=== PATIENT | female | born 1945 | race Caucasian/White ===

== ENCOUNTER 2017-08-15 11:23 | Inpatient (IN) | payer MEDICARE, OTHER ==
[2017-08-15] MEDS ORDERED: ACETAMINOPHEN 1000 MG/100 ML VIAL (NON FORMULARY) IVPB ONE (12:37)
[2017-08-15] MEDS ORDERED: SODIUM CHLORIDE 1,000 ML IV STA (12:37)
[2017-08-15] MEDS ORDERED: ACETAMINOPHEN INJECTION 100 ML IVPB ONE (12:41)
[2017-08-15 12:46] LABS: BASO % 0.4 % (0-2.0); EOS % 0.6 % (0-4.5); HEMATOCRIT 39.4 % (32.4-45.2); HEMOGLOBIN 13.1 GM/dL (10.7-15.3); MCH 26.5 pg (25.7-33.7); MCHC 33.2 g/dl (32.0-36.0); MEAN CELL VOLUME 80.1 fl (80-96); MEAN PLT VOLUME 9.5 fl (7.5-11.1); MONO % 7.3 % (3.8-10.2); NEUT % 65.7 % (42.8-82.8); PLATELET COUNT 324 K/MM3 (134-434); RBC 4.93 M/mm3 (3.60-5.2); RDW 13.2 % (11.6-15.6); WHITE BLOOD COUNT 13.6 K/mm3 (4.0-10.0)
[2017-08-15 12:47] LABS: URINE APPEARANCE CLEAR; URINE BILIRUBIN NEGATIVE (<2.0 mg/dL); URINE COLOR LTYELLOW; URINE GLUCOSE (UA) NEGATIVE (NEGATIVE); URINE KETONE NEGATIVE (NEGATIVE); URINE LEUK ESTERASE NEGATIVE (NEGATIVE); URINE NITRITE NEGATIVE (NEGATIVE); URINE PROTEIN NEGATIVE (NEGATIVE); URINE UROBILINOGEN NEGATIVE mg/dL (0.2-1.0)
[2017-08-15 13:04] LABS: ALBUMIN 3.8 g/dl (3.4-5.0); ALK PHOS 91 U/L (45-117); ANION GAP 7 (8-16); BILIRUBIN,TOTAL 0.6 mg/dL (0.2-1.0); BLOOD UREA NITROGEN 16 mg/dL (7-18); CALCIUM 9.6 mg/dL (8.5-10.1); CHLORIDE 100 mmol/L (98-107); CO2 32 mmol/L (21-32); GLUCOSE,RANDOM 97 mg/dL (74-106); LIPASE 114 U/L (73-393); SGOT/AST 20 U/L (15-37); SGPT/ALT 21 U/L (12-78); SODIUM 139 mmol/L (136-145); TOT PROT 8.1 g/dl (6.4-8.2)
--- NOTE | 2017-08-15 13:32 | PDOC ---
History of Present Illness <Radha Bautista - Last Filed: 08/15/17 16:27> - History of Present Illness Initial Comments: 08/15/17 13:28 "The patient is a 72 year old female with a significant past medical history of HTN, GERD, and HLD who presents to the emergency department for evaluation of right sided abdominal pain. The patient reports moderate right sided abdominal pain since yesterday. She describes the pain as sharp, slightly radiating towards the left. Pain is constant, not exacerbated by eating. Pt denies cp, sob , headache, dizziness, F/C, nausea, vomiting, diarrhea. No prior surgical history. Denies abdominal distention. Allergies: Aspirin Past surgical history: none Social history: Former smoker 10 years ago. No reported alcohol or drug use. PCP: Dr. 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) CVA: No COPD: No CHF: No Dementia: No Diabetes: No GI Disorders: Yes (GERD) Disorders: No HTN: Yes Hypercholesterolemia: Yes Liver Disease: No Seizures: No Thyroid Disease: No - Surgical History Abdominal Surgery: No Appendectomy: No Cardiac Surgery: Yes (CARDIAC CATH- NO STENTS) Cholecystectomy: No Lung Surgery: No Neurologic Surgery: No Orthopedic Surgery: No - Suicide/Smoking/Psychosocial Hx Smoking Status: No Smoking History: Never smoked Have you smoked in the past 12 months: No Number of Cigarettes Smoked Daily: 0 If you are a former smoker, when did you quit?: 10 YEARS AGO Information on smoking cessation initiated: No Hx Alcohol Use: No Drug/Substance Use Hx: No Substance Use Type: None Hx Substance Use Treatment: No <Wei Aguillon - Last Filed: 08/15/17 16:29> - Past Medical History Allergies/Adverse Reactions: Allergies Allergy/AdvReac Type Severity Reaction Status Date / Time aspirin Allergy Mild ABD PAIN Verified 08/15/17 11:27 Home Medications: Ambulatory Orders Esomeprazole Mag Trihydrate [Nexium] 40 mg PO PRN 09/16/13 Nebivolol HCl [Bystolic] 10 mg PO DAILY 09/16/13 Valsartan/Hydrochlorothiazide [Valsartan-Hctz 160-12.5 mg Tab] 1 each PO BID Mag Carb/Aluminum Hydrox/Algin [Gaviscon Liquid] 355 ml PO PRN 08/15/17 Review of Systems - Review of Systems Comments:: 08/15/17 13:30 "GENERAL/CONSTITUTIONAL: No fever or chills. No weakness. HEAD, EYES, EARS, NOSE AND THROAT: No change in vision. No ear pain or discharge. No sore throat. CARDIOVASCULAR: No chest pain or shortness of breath. RESPIRATORY: No cough, wheezing, or hemoptysis. GASTROINTESTINAL: No nausea, vomiting, diarrhea or constipation. GENITOURINARY: No dysuria, frequency, or change in urination. MUSCULOSKELETAL: (+)Right sided abdominal pain. No joint swelling or pain. No neck or back pain. SKIN: No rash NEUROLOGIC: No headache, vertigo, loss of consciousness, or change in strength/ sensation. ENDOCRINE: No increased thirst. No abnormal weight change. HEMATOLOGIC/LYMPHATIC: No anemia, easy bleeding, or history of blood clots. ALLERGIC/IMMUNOLOGIC: No hives or skin allergy. " <Wei Aguillon - Last Filed: 08/15/17 16:29> *Physical Exam - Vital Signs Last Vital Signs Temp Pulse Resp BP Pulse Ox 97.9 F 66 18 151/75 99 08/15/17 11:24 08/15/17 11:24 08/15/17 11:24 08/15/17 11:24 08/15/17 11:24 <Radha Bautista - Last Filed: 08/15/17 16:27> - Vital Signs Last Vital Signs Temp Pulse Resp BP Pulse Ox 97.9 F 66 18 151/75 99 08/15/17 11:24 08/15/17 11:24 08/15/17 11:24 08/15/17 11:24 08/15/17 11:24 - Physical Exam Comments: 08/15/17 13:30 "GENERAL: Awake, alert, and fully oriented, in no acute distress. HEAD: No signs of trauma EYES: PERRLA, EOMI, sclera anicteric, conjunctiva clear ENT: Auricles normal inspection, hearing grossly normal, nares patent, oropharynx clear without exudates. Moist mucosa NECK: Nontender, no stepoffs, Normal ROM, supple, no lymphadenopathy, JVD, or masses LUNGS: Breath sounds equal, clear to auscultation bilaterally. No wheezes, and no crackles HEART: Regular rate and rhythm, normal S1 and S2, no murmurs, rubs or gallops ABDOMEN: + RLQ tenderness, mild RUQ tenderness, normoactive bowel sounds. No guarding, no rebound. No masses EXTREMITIES: Normal range of motion, no edema. No clubbing or cyanosis. No cords , erythema, or tenderness NEUROLOGICAL: Cranial nerves II through XII intact. 5/5 strength and sensation in all extremities, Normal speech, normal gait, normal cerebellar function SKIN: Warm, Dry, normal turgor, no rashes or lesions noted. <PalWei - Last Filed: 08/15/17 16:29> ED Treatment Course - LABORATORY CBC & Chemistry Diagram: 08/15/17 12:22 08/15/17 12:22 - ADDITIONAL ORDERS Additional order review: Laboratory Results 08/15/17 08/15/17 08/15/17 14:00 12:25 12:22 PT with INR 12.20 INR 1.08 PTT (Actin FS) Sodium Potassium Chloride Carbon Dioxide Anion Gap BUN Creatinine Creat Clearance w eGFR Random Glucose Calcium Total Bilirubin AST ALT Alkaline Phosphatase C-Reactive Protein Cancelled Total Protein Albumin Lipase Urine Color Ltyellow Urine Appearance Clear Urine pH 7.0 D Ur Specific [place] 1.012 Urine Protein Negative Urine Glucose (UA) Negative Urine Ketones Negative Urine Blood Negative Urine Nitrite Negative Urine Bilirubin Negative Urine Urobilinogen Negative Ur Leukocyte Esterase Negative Blood Type Antibody Screen 08/15/17 08/15/17 08/15/17 12:22 12:22 12:15 PT with INR INR PTT (Actin FS) 30.1 Sodium 139 Potassium 4.0 Chloride 100 Carbon Dioxide 32 Anion Gap 7 L BUN 16 Creatinine 1.0 Creat Clearance w eGFR 54.66 Random Glucose 97 Calcium 9.6 Total Bilirubin 0.6 D AST 20 ALT 21 Alkaline Phosphatase 91 C-Reactive Protein 8.3 H Total Protein 8.1 Albumin 3.8 Lipase 114 Urine Color Urine Appearance Urine pH Ur Specific [place] Urine Protein Urine Glucose (UA) Urine Ketones Urine Blood Urine Nitrite Urine Bilirubin Urine Urobilinogen Ur Leukocyte Esterase Blood Type A POSITIVE Antibody Screen Negative 08/15/17 12:22 RBC 4.93 MCV 80.1 MCHC 33.2 RDW 13.2 MPV 9.5 Neutrophils % 65.7 D Lymphocytes % 26.0 D Monocytes % 7.3 Eosinophils % 0.6 Basophils % 0.4 - Medications Given in the ED: ED Medications Discontinued Medications Generic Name Dose Route Start Last Admin Trade Name Freq PRN Reason Stop Dose Admin Acetaminophen 1,000 mg 08/15/17 12:37 08/15/17 12:44 Ofirmev Injection - IVPB 08/15/17 12:38 1,000 mg ONCE ONE Administration Sodium Chloride 1,000 mls @ 1,000 mls/hr 08/15/17 12:37 08/15/17 13:48 Normal Saline - IV 08/15/17 13:36 1,000 mls/hr ASDIR STA Administration <Radha Bautista - Last Filed: 08/15/17 16:27> - LABORATORY CBC & Chemistry Diagram: 08/15/17 12:22 08/15/17 12:22 - ADDITIONAL ORDERS Additional order review: Laboratory Results 08/15/17 08/15/17 12:25 12:22 Sodium 139 Potassium 4.0 Chloride 100 Carbon Dioxide 32 Anion Gap 7 L BUN 16 Creatinine 1.0 Creat Clearance w eGFR 54.66 Random Glucose 97 Calcium 9.6 Total Bilirubin 0.6 D AST 20 ALT 21 Alkaline Phosphatase 91 Total Protein 8.1 Albumin 3.8 Lipase 114 Urine Color Ltyellow Urine Appearance Clear Urine pH 7.0 D Ur Specific [place] 1.012 Urine Protein Negative Urine Glucose (UA) Negative Urine Ketones Negative Urine Blood Negative Urine Nitrite Negative Urine Bilirubin Negative Urine Urobilinogen Negative Ur Leukocyte Esterase Negative 08/15/17 12:22 RBC 4.93 MCV 80.1 MCHC 33.2 RDW 13.2 MPV 9.5 Neutrophils % 65.7 D Lymphocytes % 26.0 D Monocytes % 7.3 Eosinophils % 0.6 Basophils % 0.4 - RADIOLOGY Radiology Studies Ordered: Category Date Time Status ABDOMEN & PELVIS CT WITH CONTR [CT] Stat CT Scan 08/15/17 12:01 Ordered ABDOMEN US -LIMITED [US] Stat Ultrasound 08/15/17 12:01 Ordered - Medications Given in the ED: ED Medications Discontinued Medications Generic Name Dose Route Start Last Admin Trade Name Freq PRN Reason Stop Dose Admin Acetaminophen 1,000 mg 08/15/17 12:37 08/15/17 12:44 Ofirmev Injection - IVPB 08/15/17 12:38 1,000 mg ONCE ONE Administration <Wei Aguillon - Last Filed: 08/15/17 16:29> Medical Decision Making - Medical Decision Making Case discussed with Dr. Bonilla at 16:27. <Radha Bautista - Last Filed: 08/15/17 16:27> - Medical Decision Making 08/15/17 13:31 72 F with R sided abdominal pain, found to be tender in RLQ and RUQ. Will r/o appy with CT. R/o juan luis with RUQ sono. - Labs - RUQ sono - CTAP w/ contrast - IVF, tylenol 08/15/17 16:28 Labs with elevated WBC RUQ sono negative CT shows thickening of cecum, terminal ileum, proximal descending colon, and base of appendix. Discussed with Dr. Bonilla, who does not believe this is acute appy. More likely colitis. Pt started on abx, admitted to Dr. Finch. <Wei Aguillon - Last Filed: 08/15/17 16:29> *DC/Admit/Observation/Transfer - Attestations Scribe Attestion: Documentation prepared by Radha Bautista, acting as medical laboratory assistant for Wei Aguillon MD. <Radha Bautista - Last Filed: 08/15/17 16:27> - Discharge Dispostion Decision to Admit order: Yes - Attestations Physician Attestion: 08/15/17 16:29 I, Dr. Wei Aguillon MD, attest that this document has been prepared under my direction and personally reviewed by me in its entirety. I further attest, that it accurately reflects all work, treatment, procedures and medical decision -making performed by me. <Wei Aguillon - Last Filed: 08/15/17 16:29> Diagnosis at time of Disposition: Colitis - Referrals Referrals: Osman Finch MD [Primary Care Provider] - - Patient Instructions - Post Discharge Activity
[2017-08-15 13:36] LABS: INR 1.08 (0.82-1.09); PROTHROMBIN TIME (PATIENT) 12.2 SEC (9.7-13.0)
[2017-08-15] MEDS ORDERED: morphine SULFATE 4 MG/ML VIAL IVPUSH PRN (14:04)
[2017-08-15] MEDS ORDERED: ONDANSETRON 4 MG/2 ML VIAL IVPB PRN (14:04)
[2017-08-15] MEDS ORDERED: ACETAMINOPHEN 650 MG SUPP.RECT PR PRN (14:04)
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
[2017-08-15] MEDS: SODIUM CHLORIDE 1,000 ML IV SCH (16:35)
--- NOTE | 2017-08-15 17:51 | EKG ---
Test Reason : Blood Pressure : / mmHG Vent. Rate : 067 BPM Atrial Rate : 067 BPM P-R Int : 168 ms QRS Dur : 094 ms QT Int : 420 ms P-R-T Axes : 017 -37 006 degrees QTc Int : 443 ms NORMAL SINUS RHYTHM LEFT AXIS DEVIATION MINIMAL VOLTAGE CRITERIA FOR LVH, MAY BE NORMAL VARIANT INFERIOR INFARCT (CITED ON OR BEFORE 01-DEC-2011) ANTEROSEPTAL INFARCT (CITED ON OR BEFORE 01-DEC-2011) ABNORMAL ECG WHEN COMPARED WITH ECG OF 01-DEC-2011 14:09, QRS AXIS SHIFTED LEFT QUESTIONABLE CHANGE IN INITIAL FORCES OF ANTEROSEPTAL LEADS Confirmed by WEI HOUSTON, NERISSA ([id number]) on 08/15/2017 5:51:37 PM Referred By: Confirmed By:NERISSA CARVAJAL MD
--- NOTE | 2017-08-15 18:15 | CON.GI ---
Consult Consult Specialty:: GI Reason for Consultation:: RLQ abdominal pain - History of Present Illness History of Present Illness: Chart reviewed, events noted. as per initial intake: The patient is a 72 year old female with a significant past medical history of HTN, GERD, and HLD who presents to the emergency department for evaluation of right sided abdominal pain. The patient reports moderate right sided abdominal pain since yesterday. She describes the pain as sharp, slightly radiating towards the left. Pain is constant, not exacerbated by eating. Pt denies cp, sob, headache, dizziness, F/C, nausea, vomiting, diarrhea. No prior surgical history. Denies abdominal distention. Acute onset RLQ abdominal pain x 1 day w/o diarrhea, nausea, vomiting, fever, chills. Had 2-days-old seafood 1 day prior to developing the pain. No other household members who ate the same food have the symptoms. No weight loss, changes in appetite, dyspepsia, dysphagia, fevers, jaundice. No prior episodes of the same. No family history of IBD. No personal history of ischemic hear diseas, angina. Never had colonoscopy. Blood work revealed mild leukocytosis, normal Hgb, PT, BUN, cr, liver chemistry. CT a/p with contrasts - proximal, right colon inflammation. - History Source History Provided By: Patient, Medical Record - Past Medical History Cardio/Vascular: Yes: HTN Gastrointestinal: Yes: GERD - Alcohol/Substance Use Hx Alcohol Use: No - Smoking History Smoking history: Never smoked Have you smoked in the past 12 months: No Aproximately how many cigarettes per day: 0 If you are a former smoker, when did you quit?: 10 YEARS AGO Home Medications - Allergies Allergies/Adverse Reactions: Allergies Allergy/AdvReac Type Severity Reaction Status Date / Time aspirin Allergy Mild ABD PAIN Verified 08/15/17 11:27 - Home Medications Home Medications: Ambulatory Orders Esomeprazole Mag Trihydrate [Nexium] 40 mg PO PRN 09/16/13 Nebivolol HCl [Bystolic] 10 mg PO DAILY 09/16/13 Valsartan/Hydrochlorothiazide [Valsartan-Hctz 160-12.5 mg Tab] 1 each PO BID Mag Carb/Aluminum Hydrox/Algin [Gaviscon Liquid] 355 ml PO PRN 08/15/17 Family Disease History - Family Disease History Family History: Unremarkable Review of Systems Findings/Remarks: as per HPI, H&P, ED Physical Exam-GI Vital Signs: Vital Signs Temperature 98.1 F 08/15/17 17:15 Pulse Rate 68 08/15/17 17:15 Respiratory Rate 20 08/15/17 17:15 Blood Pressure 141/72 08/15/17 17:15 O2 Sat by Pulse Oximetry (%) 99 08/15/17 17:15 Constitutional: Yes: Well Nourished, No Distress, Calm Eyes: Yes: Conjunctiva Clear HENT: Yes: Atraumatic Neck: Yes: Supple Cardiovascular: Yes: Regular Rate and Rhythm Respiratory: Yes: Regular Gastrointestinal Inspection: No: Ascites, Distention ...Palpate: Yes: Guarding (RLQ), Soft, Tenderness (RLQ). No: Firm/Rigid, Mass Neurological: Yes: Alert, Oriented Labs: CBC, BMP 08/15/17 12:22 08/15/17 12:22 INR, PTT INR 1.08 (0.82-1.09) 08/15/17 12:22 Laboratory Last Values WBC 13.6 K/mm3 (4.0-10.0) H D 08/15/17 12:22 RBC 4.93 M/mm3 (3.60-5.2) 08/15/17 12:22 Hgb 13.1 GM/dL (10.7-15.3) 08/15/17 12:22 Hct 39.4 % (32.4-45.2) 08/15/17 12:22 MCV 80.1 fl (80-96) 08/15/17 12:22 MCH 26.5 pg (25.7-33.7) 08/15/17 12:22 MCHC 33.2 g/dl (32.0-36.0) 08/15/17 12:22 RDW 13.2 % (11.6-15.6) 08/15/17 12:22 Plt Count 324 K/MM3 (134-434) 08/15/17 12:22 MPV 9.5 fl (7.5-11.1) 08/15/17 12:22 Absolute Neuts (auto) 8.9 # 08/15/17 12:22 Neutrophils % 65.7 % (42.8-82.8) D 08/15/17 12:22 Lymphocytes % 26.0 % (8-40) D 08/15/17 12:22 Monocytes % 7.3 % (3.8-10.2) 08/15/17 12:22 Eosinophils % 0.6 % (0-4.5) 08/15/17 12: Basophils % 0.4 % (0-2.0) 08/15/17 12:22 Nucleated RBC % 0 % (0-0) 08/15/17 12: ESR 28 mm/hr (0-30) 08/15/17 14:00 PT with INR 12.20 SEC (9.7-13.0) 08/15/17 12: INR 1.08 (0.82-1.09) 08/15/17 12:22 PTT (Actin FS) 30.1 SECONDS (25.2-36.5) 08/15/17 12:22 Sodium 139 mmol/L (136-145) 08/15/17 12:22 Potassium 4.0 mmol/L (3.5-5.1) 08/15/17 12:22 Chloride 100 mmol/L (98-107) 08/15/17 12:22 Carbon Dioxide 32 mmol/L (21-32) 08/15/17 12:22 Anion Gap 7 (8-16) L 08/15/17 12:22 BUN 16 mg/dL (7-18) 08/15/17 12:22 Creatinine 1.0 mg/dL (0.55-1.02) 08/15/17 12:22 Creat Clearance w eGFR 54.66 (>60) 08/15/17 12:22 Random Glucose 97 mg/dL (74-106) 08/15/17 12:22 Calcium 9.6 mg/dL (8.5-10.1) 08/15/17 12:22 Total Bilirubin 0.6 mg/dL (0.2-1.0) D 08/15/17 12:22 AST 20 U/L (15-37) 08/15/17 12:22 ALT 21 U/L (12-78) 08/15/17 12:22 Alkaline Phosphatase 91 U/L (45-117) 08/15/17 12:22 C-Reactive Protein Cancelled 08/15/17 14:00 Total Protein 8.1 g/dl (6.4-8.2) 08/15/17 12:22 Albumin 3.8 g/dl (3.4-5.0) 08/15/17 12:22 Lipase 114 U/L (73-393) 08/15/17 12:22 Urine Color Ltyellow 08/15/17 12:25 Urine Appearance Clear 08/15/17 12:25 Urine pH 7.0 (5.0-8.0) D 08/15/17 12:25 Ur Specific [place] 1.012 (1.001-1.035) 08/15/17 12:25 Urine Protein Negative (NEGATIVE) 08/15/17 12:25 Urine Glucose (UA) Negative (NEGATIVE) 08/15/17 12:25 Urine Ketones Negative (NEGATIVE) 08/15/17 12:25 Urine Blood Negative (NEGATIVE) 08/15/17 12:25 Urine Nitrite Negative (NEGATIVE) 08/15/17 12:25 Urine Bilirubin Negative (<2.0 mg/dL) 08/15/17 12:25 Urine Urobilinogen Negative mg/dL (0.2-1.0) 08/15/17 12:25 Ur Leukocyte Esterase Negative (NEGATIVE) 08/15/17 12:25 Blood Type A POSITIVE 08/15/17 12:15 Antibody Screen Negative 08/15/17 12:15 Imaging - Results Cat Scan: Report Reviewed Problem List - Problems (1) Colitis Code(s): K52.9 - NONINFECTIVE GASTROENTERITIS AND COLITIS, UNSPECIFIED Assessment/Plan Voluntary guarding and rebound on exam. Not toxic or in distress. ?Infectious vs ?ischemic etiology. IBD is less likely based on the acute presentation. Agree with Levaquin, flagyl, stool for infectious etiologies including c. diff. , hydration, and bowel rest. Avoid NSAIDs, monitor electrolytes and for worsening abdominal symptoms. Sx consult. Will reevaluate in am, or sooned if needed. Discussed with the patient and the pt's nurse
[2017-08-15 18:54] VITALS: BMI 26.2
[2017-08-15] MEDS: PANTOPRAZOLE SODIUM 40 MG VIAL IVPUSH SCH (21:15)
[2017-08-15] MEDS ORDERED: MAG HYDROX/AL HYDROX/SIMETH 30 ML UNIT-DOSE CUP PO PRN (21:18)
[2017-08-15] MEDS ORDERED: PATIENT'S OWN MEDICATION (NON-FORMULARY) (Valsartan/Hydrochlorothiazide [Valsartan-Hctz 16 PO SCH (22:00)
[2017-08-15] MEDS: HYDROCHLOROTHIAZIDE 12.5 MG CAPSULE (FP) PO SCH (22:02)
[2017-08-15] MEDS: VALSARTAN 160 MG TABLET (UD) PO SCH (22:02)
[2017-08-15] MEDS: NEBIVOLOL 10 MG TABLET (FP) PO SCH (22:02)
[2017-08-16 09:32] LABS: HEMATOCRIT 38.5 % (32.4-45.2); HEMOGLOBIN 12.7 GM/dL (10.7-15.3); MCH 26.8 pg (25.7-33.7); MCHC 32.9 g/dl (32.0-36.0); MEAN CELL VOLUME 81.5 fl (80-96); MEAN PLT VOLUME 9.3 fl (7.5-11.1); PLATELET COUNT 316 K/MM3 (134-434); RBC 4.72 M/mm3 (3.60-5.2); RDW 13.5 % (11.6-15.6)
[2017-08-16] MEDS: SODIUM CHLORIDE 1,000 ML IV SCH ×2 (09:42→14:54)
[2017-08-16] MEDS: VALSARTAN 160 MG TABLET (UD) PO SCH ×3 (09:42→21:06)
[2017-08-16] MEDS: HYDROCHLOROTHIAZIDE 12.5 MG CAPSULE (FP) PO SCH ×3 (09:43→21:06)
[2017-08-16] MEDS: PANTOPRAZOLE 40 MG TABLET (FP) PO SCH (09:50)
[2017-08-16] MEDS: PANTOPRAZOLE SODIUM 40 MG VIAL IVPUSH SCH ×2 (09:53→21:06)
[2017-08-16 09:54] LABS: CHLORIDE 105 mmol/L (98-107); POTASSIUM 3.5 mmol/L (3.5-5.1); SODIUM 142 mmol/L (136-145)
--- NOTE | 2017-08-16 10:06 | CONSULT ---
Consult Consult Specialty:: Surgery - History of Present Illness Chief Complaint: Abdominal pain History of Present Illness: 72 yr old female presents with 24 hr history of RLQ Abdominal pain. Deneis any association with Nausea, vomiting or changes in bowel habits. Denies fever or chills. She was seen in the ER yesterday and CT scan demonstrated an inflammatory process in the cecum with filling of the appendix. Since admission she is feeling better, and now experiencing several bouts of diarrhea - History Source History Provided By: Patient Limitations to Obtaining History: No Limitations - Past Medical History Cardio/Vascular: Yes: HTN Gastrointestinal: Yes: GERD - Alcohol/Substance Use Hx Alcohol Use: No - Smoking History Smoking history: Never smoked Have you smoked in the past 12 months: No Aproximately how many cigarettes per day: 0 If you are a former smoker, when did you quit?: 10 YEARS AGO Home Medications - Allergies Allergies/Adverse Reactions: Allergies Allergy/AdvReac Type Severity Reaction Status Date / Time aspirin Allergy Mild ABD PAIN Verified 08/15/17 11:27 - Home Medications Home Medications: Ambulatory Orders Esomeprazole Mag Trihydrate [Nexium] 40 mg PO PRN 09/16/13 Nebivolol HCl [Bystolic] 10 mg PO DAILY 09/16/13 Valsartan/Hydrochlorothiazide [Valsartan-Hctz 160-12.5 mg Tab] 1 each PO BID Mag Carb/Aluminum Hydrox/Algin [Gaviscon Liquid] 355 ml PO PRN 08/15/17 Physical Exam Vital Signs: Vital Signs Temperature 98.7 F 08/16/17 06:00 Pulse Rate 68 08/16/17 06:00 Respiratory Rate 20 08/16/17 06:00 Blood Pressure 152/79 08/16/17 06:00 O2 Sat by Pulse Oximetry (%) 93 L 08/15/17 21:00 Labs: CBC, BMP 08/16/17 09:14 08/16/17 09:14 Imaging - Results Cat Scan: Report Reviewed, Image Reviewed Ultrasound: Report Reviewed, Image Reviewed Problem List - Problems (1) Colitis Code(s): K52.9 - NONINFECTIVE GASTROENTERITIS AND COLITIS, UNSPECIFIED Assessment/Plan 72 yr old Admitted yesterday with acute RLQ pain and inflammation of the Cecum Clinically improving on antibiotics, , new onset of diarrhea. Agree with GI consult, this is most likely an infectious colitis Advance diet to clear liquids
--- NOTE | 2017-08-16 10:28 | PN ---
Progress Note, Physician Chief Complaint: AWAKE ALERT HAS NON-BLOODY DIARRHEA NO FEVER FEELING BETTER - Current Medication List Current Medications: Active Medications Acetaminophen (Tylenol Suppository -) 650 mg [place] Q6H PRN PRN Reason: FEVER Al Hydroxide/Mg Hydroxide (Mylanta Oral Suspension -) 30 ml PO Q6H PRN PRN Reason: INDIGESTION Hydrochlorothiazide (Hctz -) 12.5 mg PO BID [facility] Last Admin: 08/16/17 09:43 Dose: Not Given Metronidazole (Flagyl 500mg Premixed Ivpb -) 500 mg in 100 mls @ 100 mls/hr IVPB Q8H-IV [facility] Last Admin: 08/16/17 09:39 Dose: 100 mls/hr Levofloxacin (Levaquin 500 Mg Premixed Ivpb -) 500 mg in 100 mls @ 100 mls/hr IVPB DAILY [facility]; Protocol Last Admin: 08/16/17 09:49 Dose: 100 mls/hr Sodium Chloride (Normal Saline -) 1,000 mls @ 83 mls/hr IV ASDIR [facility] Last Admin: 08/16/17 09:42 Dose: 83 mls/hr Lactobacillus Acidophilus (Bacid -) 1 tab PO DAILY [facility] Morphine Sulfate (Morphine Sulfate) 2 mg IVPUSH Q6H PRN PRN Reason: PAIN LEVEL 7 - 10 Nebivolol (Bystolic -) 10 mg PO HS [facility] Last Admin: 08/15/17 22:02 Dose: Not Given Ondansetron HCl (Zofran Injection) 8 mg IVPB Q6H PRN PRN Reason: NAUSEA Pantoprazole Sodium (Protonix Iv) 40 mg IVPUSH BID [facility] Last Admin: 08/16/17 09:53 Dose: 40 mg Pantoprazole Sodium (Protonix -) 40 mg PO DAILY [facility] Last Admin: 08/16/17 09:50 Dose: Not Given Valsartan (Diovan -) 160 mg PO BID [facility] Last Admin: 08/16/17 09:42 Dose: Not Given - Objective Vital Signs: Vital Signs Temperature 98.7 F 08/16/17 06:00 Pulse Rate 68 08/16/17 06:00 Respiratory Rate 20 08/16/17 06:00 Blood Pressure 152/79 08/16/17 06:00 O2 Sat by Pulse Oximetry (%) 93 L 08/15/17 21:00 Constitutional: Yes: Mild Distress Eyes: Yes: WNL HENT: Yes: WNL Neck: Yes: WNL Cardiovascular: Yes: WNL Respiratory: Yes: WNL Gastrointestinal: Yes: Tenderness, Rebound Musculoskeletal: Yes: WNL Extremities: Yes: WNL Edema: No Peripheral Pulses WNL: Yes Integumentary: Yes: WNL Wound/Incision: Yes: Clean/Dry Neurological: Yes: WNL ...Motor Strength: WNL Psychiatric: Yes: WNL Labs: CBC, BMP 08/16/17 09:14 08/16/17 09:14 INR, PTT INR 1.08 (0.82-1.09) 08/15/17 12:22 Problem List - Problems (1) Diverticulitis Code(s): K57.92 - DVTRCLI OF INTEST, PART UNSP, W/O PERF OR ABSCESS W/O BLEED (2) Acute abdomen Code(s): R10.0 - ACUTE ABDOMEN (3) DMII (diabetes mellitus, type 2) Code(s): E11.9 - TYPE 2 DIABETES MELLITUS WITHOUT COMPLICATIONS (4) HTN (hypertension) Code(s): I10 - ESSENTIAL (PRIMARY) HYPERTENSION Assessment/Plan ACUTE GASTROENTERITIS/COLITIS CONTINUE LEVAQUIN AND FLAGYL IV CLEAR DIET SEND STOOL FOR CDIFF/CULTURES SURGERY/GI FOLLOW UP APPRECIATED
[2017-08-16 10:30] LABS: ALBUMIN 3.6 g/dl (3.4-5.0); ALK PHOS 84 U/L (45-117); ANION GAP 10 (8-16); BILIRUBIN,TOTAL 0.5 mg/dL (0.2-1.0); BLOOD UREA NITROGEN 11 mg/dL (7-18); CALCIUM 8.7 mg/dL (8.5-10.1); CO2 27 mmol/L (21-32); CREATININE 0.9 mg/dL (0.55-1.02); GLUCOSE,RANDOM 92 mg/dL (74-106); SGOT/AST 19 U/L (15-37); SGPT/ALT 22 U/L (12-78); TOT PROT 7.8 g/dl (6.4-8.2)
[2017-08-16] MEDS: LACTOBACILLUS ACIDOPHILUS 1 TABLET PO SCH (11:21)
--- NOTE | 2017-08-16 16:16 | PN ---
Progress Note (short form) - Note Progress Note: ID consult dictated imp/reccd colitis- rapidly resolving on levaquin/flagyl f/u stool studies no travel no pets no sick contacts Problem List - Problems (1) Colitis Code(s): K52.9 - NONINFECTIVE GASTROENTERITIS AND COLITIS, UNSPECIFIED
--- NOTE | 2017-08-16 18:32 | CONS ---
INFECTIOUS DISEASE CONSULTATION REQUESTED BY: Dr. Finch DATE OF CONSULTATION: DATE OF DICTATION: 08/16/2017 HISTORY OF PRESENT ILLNESS: This is a 72-year-old woman. She looks much younger than her stated age. She had acute onset of abdominal pain on the 16th, right lower quadrant. She denied any fevers or chills. The pain started on the 15th and it just became worse and worse. There was no relationship to any meals. There was no nausea or vomiting. There was no diarrhea associated. She had a CAT scan in the ER looking for appendicitis and she was found to have a focal colitis and no evidence of appendicitis. She was evaluated by GI and by Surgery. The next day on the she started having some diarrhea. She has not been on any recent antibiotics. There is no history of any travel. She coooks at home and eats at home. Today she reports the pain is almost gone. She is markedly improved. She is still having some loose stools that are not bloody. PAST MEDICAL HISTORY: Notable for hypertension, diabetes, hyperlipidemia, and GERD. SOCIAL HISTORY: She lives at home. She helps her daughter out a lot. There are no sick contacts. She is not working. No cigarettes, substance use. She quit smoking 10 years ago. She is originally from [place]. FAMILY HISTORY: Negative for IBC. She has never had a colonoscopy. ALLERGIES: She is allergic to ASPIRIN. MEDICATIONS AT HOME: Include Nexium, Bystolic, valsartan, hydrochlorothiazide and Gaviscon p.r.n. REVIEW OF SYSTEMS: As per HPI. Marked improvement in abdominal pain. She is tolerating clears. She has minimal diarrhea. PHYSICAL EXAMINATION: General: She is awake and alert, a pleasant woman in no acute distress, much younger than her stated age. Vital Signs: Temperature is 98.6. She has had no fever to this illness. Pulse of 65. Blood pressure 140/52. Respiratory rate 18. HEENT: She is normocephalic. Her eyes are anicteric. Neck: Supple. Lungs: Clear to auscultation. Heart: Regular rate and rhythm. Abdomen: Soft, nontender. She has minimal right lower quadrant discomfort on deep palpation. There is no rebound or guarding. ADMISSION LABORATORY: White count was 13.6. Repeat is 12. Differential is normal. Sedimentation rate is normal at 28. INR is normal. LFTs and chemistries today are all normal as well. Urinalysis is negative. Urine culture is negative. CAT scan findings are as stated. On admission she had evidence of right lower quadrant, there were inflammatory changes to possible ascending colon and terminal ileum and appendix opacified and was unremarkable. ASSESSMENT: In summary, this is a 72-year-old woman with a focal colitis rapidly improving on Levaquin and Flagyl with followup stool studies which have ordered. There is no travel, pets or sick contacts to implicate a particular pathogen, but she is improving and should be able to be switched to oral treatment in the morning. Further recommendations to follow. Goldie [id number] MTDD
[2017-08-16] MEDS ORDERED: PT OWN MED DRAWER 7, Y5N ONE (20:19)
[2017-08-16] MEDS: NEBIVOLOL 10 MG TABLET (FP) PO SCH (21:09)
--- NOTE | 2017-08-16 21:09 | PN ---
Progress Note, Physician History of Present Illness: Continues to improve clinically, still has mild rebound in RLQ - Current Medication List Current Medications: Active Medications Acetaminophen (Tylenol Suppository -) 650 mg [place] Q6H PRN PRN Reason: FEVER Al Hydroxide/Mg Hydroxide (Mylanta Oral Suspension -) 30 ml PO Q6H PRN PRN Reason: INDIGESTION Hydrochlorothiazide (Hctz -) 12.5 mg PO BID [facility] Last Admin: 08/16/17 21:06 Dose: Not Given Metronidazole (Flagyl 500mg Premixed Ivpb -) 500 mg in 100 mls @ 100 mls/hr IVPB Q8H-IV [facility] Last Admin: 08/16/17 17:42 Dose: 100 mls/hr Levofloxacin (Levaquin 500 Mg Premixed Ivpb -) 500 mg in 100 mls @ 100 mls/hr IVPB DAILY [facility]; Protocol Last Admin: 08/16/17 09:49 Dose: 100 mls/hr Sodium Chloride (Normal Saline -) 1,000 mls @ 83 mls/hr IV ASDIR [facility] Last Admin: 08/16/17 14:54 Dose: Not Given Lactobacillus Acidophilus (Bacid -) 1 tab PO DAILY [facility] Last Admin: 08/16/17 11:21 Dose: 1 tab Morphine Sulfate (Morphine Sulfate) 2 mg IVPUSH Q6H PRN PRN Reason: PAIN LEVEL 7 - 10 Nebivolol (Bystolic -) 10 mg PO HS [facility] Last Admin: 08/15/17 22:02 Dose: Not Given Ondansetron HCl (Zofran Injection) 8 mg IVPB Q6H PRN PRN Reason: NAUSEA Pantoprazole Sodium (Protonix Iv) 40 mg IVPUSH BID [facility] Last Admin: 08/16/17 21:06 Dose: 40 mg Pantoprazole Sodium (Protonix -) 40 mg PO DAILY [facility] Last Admin: 08/16/17 09:50 Dose: Not Given Valsartan (Diovan -) 160 mg PO BID [facility] Last Admin: 08/16/17 21:06 Dose: Not Given - Objective Vital Signs: Vital Signs Temperature 98.9 F 08/16/17 19:05 Pulse Rate 69 08/16/17 19:05 Respiratory Rate 20 08/16/17 19:05 Blood Pressure 153/85 08/16/17 19:05 O2 Sat by Pulse Oximetry (%) 96 08/16/17 09:00 Constitutional: Yes: Well Nourished, No Distress, Calm Eyes: Yes: Conjunctiva Clear HENT: Yes: Atraumatic Cardiovascular: Yes: Regular Rate and Rhythm Respiratory: Yes: Regular Gastrointestinal: Yes: Normal Bowel Sounds, Soft, Tenderness, Rebound Labs: CBC, BMP 08/16/17 09:14 08/16/17 09:14 INR, PTT INR 1.08 (0.82-1.09) 08/15/17 12:22 Laboratory Last Values WBC 12.0 K/mm3 (4.0-10.0) H 08/16/17 09:14 RBC 4.72 M/mm3 (3.60-5.2) 08/16/17 09:14 Hgb 12.7 GM/dL (10.7-15.3) 08/16/17 09:14 Hct 38.5 % (32.4-45.2) 08/16/17 09:14 MCV 81.5 fl (80-96) 08/16/17 09:14 MCH 26.8 pg (25.7-33.7) 08/16/17 09:14 MCHC 32.9 g/dl (32.0-36.0) 08/16/17 09:14 RDW 13.5 % (11.6-15.6) 08/16/17 09:14 Plt Count 316 K/MM3 (134-434) 08/16/17 09:14 MPV 9.3 fl (7.5-11.1) 08/16/17 09:14 Absolute Neuts (auto) 8.9 # 08/15/17 12:22 Neutrophils % 65.7 % (42.8-82.8) D 08/15/17 12:22 Lymphocytes % 26.0 % (8-40) D 08/15/17 12:22 Monocytes % 7.3 % (3.8-10.2) 08/15/17 12:22 Eosinophils % 0.6 % (0-4.5) 08/15/17 12:22 Basophils % 0.4 % (0-2.0) 08/15/17 12:22 Nucleated RBC % 0 % (0-0) 08/15/17 12:22 ESR 28 mm/hr (0-30) 08/15/17 14:00 PT with INR 12.20 SEC (9.7-13.0) 08/15/17 12:22 INR 1.08 (0.82-1.09) 08/15/17 12:22 PTT (Actin FS) 30.1 SECONDS (25.2-36.5) 08/15/17 12:22 Sodium 142 mmol/L (136-145) 08/16/17 09:14 Potassium 3.5 mmol/L (3.5-5.1) 08/16/17 09:14 Chloride 105 mmol/L (98-107) 08/16/17 09:14 Carbon Dioxide 27 mmol/L (21-32) 08/16/17 09:14 Anion Gap 10 (8-16) 08/16/17 09:14 BUN 11 mg/dL (7-18) 08/16/17 09:14 Creatinine 0.9 mg/dL (0.55-1.02) 08/16/17 09:14 Creat Clearance w eGFR > 60 (>60) 08/16/17 09:14 Random Glucose 92 mg/dL (74-106) 08/16/17 09:14 Calcium 8.7 mg/dL (8.5-10.1) 08/16/17 09:14 Total Bilirubin 0.5 mg/dL (0.2-1.0) 08/16/17 09:14 AST 19 U/L (15-37) 08/16/17 09:14 ALT 22 U/L (12-78) 08/16/17 09:14 Alkaline Phosphatase 84 U/L (45-117) 08/16/17 09:14 C-Reactive Protein Cancelled 08/15/17 14:00 Total Protein 7.8 g/dl (6.4-8.2) 08/16/17 09:14 Albumin 3.6 g/dl (3.4-5.0) 08/16/17 09:14 Lipase 114 U/L (73-393) 08/15/17 12:22 Urine Color Ltyellow 08/15/17 12:25 Urine Appearance Clear 08/15/17 12:25 Urine pH 7.0 (5.0-8.0) D 08/15/17 12:25 Ur Specific [place] 1.012 (1.001-1.035) 08/15/17 12:25 Urine Protein Negative (NEGATIVE) 08/15/17 12:25 Urine Glucose (UA) Negative (NEGATIVE) 08/15/17 12:25 Urine Ketones Negative (NEGATIVE) 08/15/17 12:25 Urine Blood Negative (NEGATIVE) 08/15/17 12:25 Urine Nitrite Negative (NEGATIVE) 08/15/17 12:25 Urine Bilirubin Negative (<2.0 mg/dL) 08/15/17 12:25 Urine Urobilinogen Negative mg/dL (0.2-1.0) 08/15/17 12:25 Ur Leukocyte Esterase Negative (NEGATIVE) 08/15/17 12:25 Stool Occult Blood Negative (NEGATIVE) 08/15/17 22:00 Blood Type A POSITIVE 08/15/17 12:15 Antibody Screen Negative 08/15/17 12:15 Problem List - Problems (1) Colitis Code(s): K52.9 - NONINFECTIVE GASTROENTERITIS AND COLITIS, UNSPECIFIED Assessment/Plan Continue current care.
--- NOTE | 2017-08-17 06:37 | PN ---
Progress Note, Physician History of Present Illness: Feeling better - Current Medication List Current Medications: Active Medications Acetaminophen (Tylenol Suppository -) 650 mg [place] Q6H PRN PRN Reason: FEVER Al Hydroxide/Mg Hydroxide (Mylanta Oral Suspension -) 30 ml PO Q6H PRN PRN Reason: INDIGESTION Hydrochlorothiazide (Hctz -) 12.5 mg PO BID [facility] Last Admin: 08/16/17 21:06 Dose: Not Given Metronidazole (Flagyl 500mg Premixed Ivpb -) 500 mg in 100 mls @ 100 mls/hr IVPB Q8H-IV [facility] Last Admin: 08/17/17 02:48 Dose: 100 mls/hr Levofloxacin (Levaquin 500 Mg Premixed Ivpb -) 500 mg in 100 mls @ 100 mls/hr IVPB DAILY [facility]; Protocol Last Admin: 08/16/17 09:49 Dose: 100 mls/hr Sodium Chloride (Normal Saline -) 1,000 mls @ 83 mls/hr IV ASDIR [facility] Last Admin: 08/16/17 14:54 Dose: Not Given Lactobacillus Acidophilus (Bacid -) 1 tab PO DAILY [facility] Last Admin: 08/16/17 11:21 Dose: 1 tab Morphine Sulfate (Morphine Sulfate) 2 mg IVPUSH Q6H PRN PRN Reason: PAIN LEVEL 7 - 10 Nebivolol (Bystolic -) 10 mg PO HS [facility] Last Admin: 08/16/17 21:09 Dose: 10 mg Ondansetron HCl (Zofran Injection) 8 mg IVPB Q6H PRN PRN Reason: NAUSEA Pantoprazole Sodium (Protonix Iv) 40 mg IVPUSH BID [facility] Last Admin: 08/16/17 21:06 Dose: 40 mg Pantoprazole Sodium (Protonix -) 40 mg PO DAILY [facility] Last Admin: 08/16/17 09:50 Dose: Not Given Valsartan (Diovan -) 160 mg PO BID [facility] Last Admin: 08/16/17 21:06 Dose: Not Given - Objective Vital Signs: Vital Signs Temperature 98.4 F 08/17/17 06:00 Pulse Rate 94 H 08/17/17 06:00 Respiratory Rate 20 08/17/17 06:00 Blood Pressure 145/78 08/17/17 06:00 O2 Sat by Pulse Oximetry (%) 96 08/16/17 21:00 Labs: CBC, BMP 08/16/17 09:14 08/16/17 09:14 INR, PTT INR 1.08 (0.82-1.09) 08/15/17 12:22 Problem List - Problems (1) Colitis Code(s): K52.9 - NONINFECTIVE GASTROENTERITIS AND COLITIS, UNSPECIFIED Assessment/Plan Continues to improve Advance diet Continue antibiotics
[2017-08-17 07:01] LABS: HEMATOCRIT 36.4 % (32.4-45.2); HEMOGLOBIN 12.3 GM/dL (10.7-15.3); MCH 27.4 pg (25.7-33.7); MCHC 33.7 g/dl (32.0-36.0); MEAN CELL VOLUME 81.3 fl (80-96); MEAN PLT VOLUME 9.1 fl (7.5-11.1); PLATELET COUNT 265 K/MM3 (134-434); RBC 4.48 M/mm3 (3.60-5.2); RDW 13.4 % (11.6-15.6); WHITE BLOOD COUNT 9.9 K/mm3 (4.0-10.0)
[2017-08-17 07:47] LABS: CHLORIDE 108 mmol/L (98-107); POTASSIUM 3.5 mmol/L (3.5-5.1); SODIUM 143 mmol/L (136-145)
[2017-08-17 08:03] LABS: ANION GAP 9 (8-16); BLOOD UREA NITROGEN 9 mg/dL (7-18); CALCIUM 8.7 mg/dL (8.5-10.1); CO2 26 mmol/L (21-32); CREATININE 0.9 mg/dL (0.55-1.02); GLUCOSE,RANDOM 94 mg/dL (74-106); MAGNESIUM 2.2 mg/dL (1.8-2.4)
[2017-08-17] MEDS: LACTOBACILLUS ACIDOPHILUS 1 TABLET PO SCH (09:47)
[2017-08-17] MEDS: HYDROCHLOROTHIAZIDE 12.5 MG CAPSULE (FP) PO SCH (09:47)
[2017-08-17] MEDS: PANTOPRAZOLE 40 MG TABLET (FP) PO SCH (09:47)
[2017-08-17] MEDS: VALSARTAN 160 MG TABLET (UD) PO SCH (09:47)
[2017-08-17] MEDS: PANTOPRAZOLE SODIUM 40 MG VIAL IVPUSH SCH (09:47)
--- NOTE | 2017-08-17 12:01 | PN ---
Progress Note (short form) - Note Progress Note: abdominal pain resolved still some loose stools tolerating full liquid diet Vital Signs Period Temp Pulse Resp BP Sys/Mandel Pulse Ox Last 24 Hr 98.4 F-98.9 F 61-94 20-20 145-153/76-85 96 cor-rrr lungs clear abd soft,nt ext no edema CBC, BMP 08/17/17 06:45 08/17/17 06:45 Microbiology 08/15/17 12:25 Urine - Urine Clean Catch Urine Culture - Final NO GROWTH OBTAINED a/p colitis- rapidly resolving on levaquin/flagyl f/u stool studies can switch to po when taking po well Problem List - Problems (1) Colitis Code(s): K52.9 - NONINFECTIVE GASTROENTERITIS AND COLITIS, UNSPECIFIED
--- NOTE | 2017-08-17 12:09 | PN ---
Progress Note, Physician - Current Medication List Current Medications: Active Medications Acetaminophen (Tylenol Suppository -) 650 mg [place] Q6H PRN PRN Reason: FEVER Al Hydroxide/Mg Hydroxide (Mylanta Oral Suspension -) 30 ml PO Q6H PRN PRN Reason: INDIGESTION Hydrochlorothiazide (Hctz -) 12.5 mg PO BID [facility] Last Admin: 08/17/17 09:47 Dose: 12.5 mg Metronidazole (Flagyl 500mg Premixed Ivpb -) 500 mg in 100 mls @ 100 mls/hr IVPB Q8H-IV [facility] Last Admin: 08/17/17 09:47 Dose: 100 mls/hr Levofloxacin (Levaquin 500 Mg Premixed Ivpb -) 500 mg in 100 mls @ 100 mls/hr IVPB DAILY [facility]; Protocol Last Admin: 08/17/17 09:47 Dose: 100 mls/hr Sodium Chloride (Normal Saline -) 1,000 mls @ 83 mls/hr IV ASDIR [facility] Last Admin: 08/16/17 14:54 Dose: Not Given Lactobacillus Acidophilus (Bacid -) 1 tab PO DAILY [facility] Last Admin: 08/17/17 09:47 Dose: 1 tab Morphine Sulfate (Morphine Sulfate) 2 mg IVPUSH Q6H PRN PRN Reason: PAIN LEVEL 7 - 10 Nebivolol (Bystolic -) 10 mg PO HS [facility] Last Admin: 08/16/17 21:09 Dose: 10 mg Ondansetron HCl (Zofran Injection) 8 mg IVPB Q6H PRN PRN Reason: NAUSEA Pantoprazole Sodium (Protonix Iv) 40 mg IVPUSH BID [facility] Last Admin: 08/17/17 09:47 Dose: 40 mg Pantoprazole Sodium (Protonix -) 40 mg PO DAILY [facility] Last Admin: 08/17/17 09:47 Dose: 40 mg Valsartan (Diovan -) 160 mg PO BID [facility] Last Admin: 08/17/17 09:47 Dose: 160 mg - Objective Vital Signs: Vital Signs Temperature 98.6 F 08/17/17 08:54 Pulse Rate 61 08/17/17 08:54 Respiratory Rate 20 08/17/17 08:54 Blood Pressure 151/76 08/17/17 08:54 O2 Sat by Pulse Oximetry (%) 96 08/16/17 21:00 Constitutional: Yes: Well Nourished, No Distress, Calm Labs: CBC, BMP 08/17/17 06:45 08/17/17 06:45 INR, PTT INR 1.08 (0.82-1.09) 08/15/17 12:22
--- NOTE | 2017-08-17 14:37 | PN ---
Progress Note, Physician History of Present Illness: Continues to improve clinically, pain free. - Current Medication List Current Medications: Active Medications Acetaminophen (Tylenol Suppository -) 650 mg [place] Q6H PRN PRN Reason: FEVER Al Hydroxide/Mg Hydroxide (Mylanta Oral Suspension -) 30 ml PO Q6H PRN PRN Reason: INDIGESTION Hydrochlorothiazide (Hctz -) 12.5 mg PO BID [facility] Last Admin: 08/17/17 09:47 Dose: 12.5 mg Metronidazole (Flagyl 500mg Premixed Ivpb -) 500 mg in 100 mls @ 100 mls/hr IVPB Q8H-IV [facility] Last Admin: 08/17/17 09:47 Dose: 100 mls/hr Levofloxacin (Levaquin 500 Mg Premixed Ivpb -) 500 mg in 100 mls @ 100 mls/hr IVPB DAILY [facility]; Protocol Last Admin: 08/17/17 09:47 Dose: 100 mls/hr Sodium Chloride (Normal Saline -) 1,000 mls @ 83 mls/hr IV ASDIR [facility] Last Admin: 08/16/17 14:54 Dose: Not Given Lactobacillus Acidophilus (Bacid -) 1 tab PO DAILY [facility] Last Admin: 08/17/17 09:47 Dose: 1 tab Morphine Sulfate (Morphine Sulfate) 2 mg IVPUSH Q6H PRN PRN Reason: PAIN LEVEL 7 - 10 Nebivolol (Bystolic -) 10 mg PO HS [facility] Last Admin: 08/16/17 21:09 Dose: 10 mg Ondansetron HCl (Zofran Injection) 8 mg IVPB Q6H PRN PRN Reason: NAUSEA Pantoprazole Sodium (Protonix Iv) 40 mg IVPUSH BID [facility] Last Admin: 08/17/17 09:47 Dose: 40 mg Pantoprazole Sodium (Protonix -) 40 mg PO DAILY [facility] Last Admin: 08/17/17 09:47 Dose: 40 mg Valsartan (Diovan -) 160 mg PO BID [facility] Last Admin: 08/17/17 09:47 Dose: 160 mg - Objective Vital Signs: Vital Signs Temperature 98.6 F 08/17/17 08:54 Pulse Rate 61 08/17/17 08:54 Respiratory Rate 20 08/17/17 08:54 Blood Pressure 151/76 08/17/17 08:54 O2 Sat by Pulse Oximetry (%) 96 08/16/17 21:00 Constitutional: Yes: Well Nourished, No Distress, Calm Gastrointestinal: Yes: Soft. No: Tenderness, Tenderness, Rebound, Vomiting Labs: CBC, BMP 08/17/17 06:45 08/17/17 06:45 INR, PTT INR 1.08 (0.82-1.09) 08/15/17 12:22 Laboratory Last Values WBC 9.9 K/mm3 (4.0-10.0) 08/17/17 06:45 RBC 4.48 M/mm3 (3.60-5.2) 08/17/17 06:45 Hgb 12.3 GM/dL (10.7-15.3) 08/17/17 06:45 Hct 36.4 % (32.4-45.2) 08/17/17 06:45 MCV 81.3 fl (80-96) 08/17/17 06:45 MCH 27.4 pg (25.7-33.7) 08/17/17 06:45 MCHC 33.7 g/dl (32.0-36.0) 08/17/17 06:45 RDW 13.4 % (11.6-15.6) 08/17/17 06:45 Plt Count 265 K/MM3 (134-434) 08/17/17 06:45 MPV 9.1 fl (7.5-11.1) 08/17/17 06:45 Absolute Neuts (auto) 8.9 # 08/15/17 12:22 Neutrophils % 65.7 % (42.8-82.8) D 08/15/17 12:22 Lymphocytes % 26.0 % (8-40) D 08/15/17 12:22 Monocytes % 7.3 % (3.8-10.2) 08/15/17 12:22 Eosinophils % 0.6 % (0-4.5) 08/15/17 12:22 Basophils % 0.4 % (0-2.0) 08/15/17 12:22 Nucleated RBC % 0 % (0-0) 08/15/17 12:22 ESR 28 mm/hr (0-30) 08/15/17 14:00 PT with INR 12.20 SEC (9.7-13.0) 08/15/17 12:22 INR 1.08 (0.82-1.09) 08/15/17 12:22 PTT (Actin FS) 30.1 SECONDS (25.2-36.5) 08/15/17 12:22 Sodium 143 mmol/L (136-145) 08/17/17 06:45 Potassium 3.5 mmol/L (3.5-5.1) 08/17/17 06:45 Chloride 108 mmol/L (98-107) H 08/17/17 06:45 Carbon Dioxide 26 mmol/L (21-32) 08/17/17 06:45 Anion Gap 9 (8-16) 08/17/17 06:45 BUN 9 mg/dL (7-18) 08/17/17 06:45 Creatinine 0.9 mg/dL (0.55-1.02) 08/17/17 06:45 Creat Clearance w eGFR > 60 (>60) 08/17/17 06:45 Random Glucose 94 mg/dL (74-106) 08/17/17 06:45 Calcium 8.7 mg/dL (8.5-10.1) 08/17/17 06:45 Magnesium 2.2 mg/dL (1.8-2.4) 08/17/17 06:45 Total Bilirubin 0.5 mg/dL (0.2-1.0) 08/16/17 09:14 AST 19 U/L (15-37) 08/16/17 09:14 ALT 22 U/L (12-78) 08/16/17 09:14 Alkaline Phosphatase 84 U/L (45-117) 08/16/17 09:14 C-Reactive Protein 5.3 MG/DL (0.00-0.3) H 08/17/17 06:45 Total Protein 7.8 g/dl (6.4-8.2) 08/16/17 09:14 Albumin 3.6 g/dl (3.4-5.0) 08/16/17 09:14 Lipase 114 U/L (73-393) 08/15/17 12:22 Urine Color Ltyellow 08/15/17 12:25 Urine Appearance Clear 08/15/17 12:25 Urine pH 7.0 (5.0-8.0) D 08/15/17 12:25 Ur Specific [place] 1.012 (1.001-1.035) 08/15/17 12:25 Urine Protein Negative (NEGATIVE) 08/15/17 12:25 Urine Glucose (UA) Negative (NEGATIVE) 08/15/17 12:25 Urine Ketones Negative (NEGATIVE) 08/15/17 12:25 Urine Blood Negative (NEGATIVE) 08/15/17 12:25 Urine Nitrite Negative (NEGATIVE) 08/15/17 12:25 Urine Bilirubin Negative (<2.0 mg/dL) 08/15/17 12:25 Urine Urobilinogen Negative mg/dL (0.2-1.0) 08/15/17 12:25 Ur Leukocyte Esterase Negative (NEGATIVE) 08/15/17 12:25 Stool Occult Blood Negative (NEGATIVE) 08/15/17 22:00 Blood Type A POSITIVE 08/15/17 12:15 Antibody Screen Negative 08/15/17 12:15 Problem List - Problems (1) Colitis Code(s): K52.9 - NONINFECTIVE GASTROENTERITIS AND COLITIS, UNSPECIFIED Assessment/Plan Continue current care.
[2017-08-17 15:35] VITALS: BP 153/82; PULSE 64; TEMP 98.1
--- NOTE | 2017-08-17 15:41 | DS ---
Physical Examination Vital Signs: Vital Signs Temperature 98.1 F 08/17/17 15:30 Pulse Rate 64 08/17/17 15:30 Respiratory Rate 20 08/17/17 15:30 Blood Pressure 153/82 08/17/17 15:30 O2 Sat by Pulse Oximetry (%) 97 08/17/17 09:00 Constitutional: Yes: No Distress Eyes: Yes: WNL HENT: Yes: WNL Neck: Yes: WNL Cardiovascular: Yes: WNL Respiratory: Yes: WNL Gastrointestinal: Yes: WNL Renal/: Yes: WNL Musculoskeletal: Yes: WNL Extremities: Yes: WNL Edema: No Peripheral Pulses WNL: Yes Integumentary: Yes: WNL Wound/Incision: Yes: Clean/Dry Neurological: Yes: WNL ...Motor Strength: WNL Psychiatric: Yes: WNL Labs: CBC, BMP 08/17/17 06:45 08/17/17 06:45 Discharge Summary Reason For Visit: COLITIS Current Active Problems Acute abdomen (Acute) Colitis (Acute) DMII (diabetes mellitus, type 2) (Acute) Diverticulitis (Acute) HTN (hypertension) (Acute) Procedures: Principal: ct abd Hospital Course: admitted acute colitis, treated iv abx, ivf, tolerated po diet, dc home - Instructions Diet, Activity, Other Instructions: low fat diet no cheese! be nice to your grandaughters see your doctor in 1 week complete your antibiotics Referrals: Osman Finch MD [Primary Care Provider] - Disposition: HOME - Home Medications Comprehensive Discharge Medication List: Ambulatory Orders Esomeprazole Mag Trihydrate [Nexium] 40 mg PO PRN 09/16/13 Nebivolol HCl [Bystolic] 10 mg PO DAILY 09/16/13 Valsartan/Hydrochlorothiazide [Valsartan-Hctz 160-12.5 mg Tab] 1 each PO BID Mag Carb/Aluminum Hydrox/Algin [Gaviscon Liquid] 355 ml PO PRN 08/15/17 Lactobacillus Acidophilus [Bacid -] 1 tab PO DAILY #30 tab 08/17/17 Levofloxacin [Levaquin] 500 mg PO DAILY #5 tablet 08/17/17 metroNIDAZOLE [Flagyl -] 500 mg PO TID #21 tablet 08/17/17
== END 2017-08-17 15:57 | disposition home or self-care (01) | DRG 392 ==
LOC: JER 11:23 → JERBED 16:47 → J6S 18:16
PROVIDERS: ADMIT Family Medicine; ATTEND Family Medicine
DX: K52.9 Noninfective gastroenteritis and colitis, unspecified (principal); E11.9 Type 2 diabetes mellitus without complications; I10 Essential (primary) hypertension; K21.9 Gastro-esophageal reflux disease without esophagitis; E78.5 Hyperlipidemia, unspecified; R10.31 Right lower quadrant pain
CPT/HCPCS: 36415; 74177-TC; 76705-TC; 80048; 80053; 81003; 82272; 83690; 83735; 85025; 85027; 85610; 85651; 85730; 86140; 86850; 86900; 86901; 87045; 87046; 87086; 87177; 87209; 87324; 87427; 87449; 93005; 93010; 99283-25; J0131; J7030

== ENCOUNTER 2022-06-11 09:39 | Inpatient (IN) | payer MEDICARE, OTHER ==
[2022-06-11 09:46] VITALS: BMI 25.4
[2022-06-11] MEDS ORDERED: LACTATED RINGERS SOLUTION 1,000 ML/1,000 ML INFUS.BAG IV STA ×2 (10:29→12:09)
[2022-06-11] MEDS ORDERED: FAMOTIDINE 20 MG/50 ML IVPB 20 MG/50 ML MG IVPB ONE ×2 (10:33→11:02)
[2022-06-11 12:05] LABS: EPI CELLS 3 /uL (0-25.1); HYALINE CASTS 0 /uL (0-3.1); PH,URINE >= 9.0 (5.0-8.0); URINE APPEARANCE CLEAR; URINE BACTERIA 6 /uL (0-1359); URINE BILIRUBIN NEGATIVE (NEGATIVE); URINE COLOR YELLOW; URINE GLUCOSE (UA) NEGATIVE (NEGATIVE); URINE KETONE NEGATIVE (NEGATIVE); URINE LEUK ESTERASE NEGATIVE (NEGATIVE); URINE NITRITE NEGATIVE (NEGATIVE); URINE PROTEIN 1+ (NEGATIVE); URINE RBC 27 /uL (0-23.9); URINE UROBILINOGEN 0.2 mg/dL (0.2-1.0); URINE WBC 4 /uL (0-25.8)
[2022-06-11 12:06] LABS: BASO % 0.5 % (0-2.0); HEMATOCRIT 39.3 % (32.4-45.2); HEMOGLOBIN 13.3 GM/dL (10.7-15.3); LYMPH % 11.4 % (8-40); MCH 26.6 pg (25.7-33.7); MCHC 33.8 g/dl (32.0-36.0); MEAN CELL VOLUME 78.7 fl (80-96); MEAN PLT VOLUME 9.9 fl (7.5-11.1); MONO % 6.5 % (3.8-10.2); NEUT % 81.6 % (42.8-82.8); PLATELET COUNT 357 10^3/uL (134-434); RBC 4.99 M/mm3 (3.60-5.2); RDW 13.6 % (11.6-15.6); WHITE BLOOD COUNT 13.5 K/mm3 (4.0-10.0)
[2022-06-11] MEDS ORDERED: PIPERACILLIN/TAZOB 3.375 GM 3.375 GM in DEXTROSE 5%-WATER - 50 ML IVPB ONE (12:10)
[2022-06-11 12:13] LABS: INR 1.09 (0.83-1.09); PROTHROMBIN TIME (PATIENT) 12.6 SEC (9.7-13.0)
[2022-06-11 12:27] LABS: BLOOD UREA NITROGEN 15.1 mg/dL (7-18)
[2022-06-11 12:29] LABS: CALCIUM 9.8 mg/dL (8.5-10.1); MAGNESIUM 2.1 mg/dL (1.8-2.4)
[2022-06-11 12:32] LABS: BILIRUBIN,TOTAL 0.9 mg/dL (0.2-1); CREATININE 0.9 mg/dL (0.55-1.3)
[2022-06-11] MEDS ORDERED: PIPERACILLIN/TAZOB 3.375 GM 3.375 GM/50 ML BAG IVPB ONE ×2 (12:34→16:23)
[2022-06-11] MEDS ORDERED: ACETAMINOPHEN 1000 MG/100 ML BAG IVPB ONE (12:50)
[2022-06-11] MEDS ORDERED: morphine SULFATE 4 MG/ML VIAL IVPUSH PRN (12:59)
[2022-06-11] MEDS ORDERED: PANTOPRAZOLE SODIUM 40 MG VIAL ONE (13:12)
[2022-06-11] MEDS ORDERED: ACETAMINOPHEN INJECTION 100 ML IVPB ONE ×2 (13:12→18:23)
[2022-06-11] MEDS: PANTOPRAZOLE SODIUM 40 MG VIAL IVPUSH SCH (13:20)
[2022-06-11] MEDS ORDERED: NEBIVOLOL 2.5 MG TABLET (FP) PO ONE (13:42)
[2022-06-11] MEDS: PIPERACILLIN/TAZOB 3.375 GM 3.375 GM in DEXTROSE 5%-WATER - 50 ML IVPB SCH (17:59)
[2022-06-11] MEDS: ACETAMINOPHEN 1000 MG/100 ML BAG IVPB PRN (18:29)
[2022-06-11] MEDS: HEPARIN NA (PORCINE) 5,000 UNITS/ML 1ML VIAL SQ SCH ×2 (21:22→21:45)
[2022-06-12] MEDS: PIPERACILLIN/TAZOB 3.375 GM 3.375 GM in DEXTROSE 5%-WATER - 50 ML IVPB SCH ×2 (02:10→09:21)
[2022-06-12] MEDS: HEPARIN NA (PORCINE) 5,000 UNITS/ML 1ML VIAL SQ SCH (09:10)
[2022-06-12] MEDS: PANTOPRAZOLE SODIUM 40 MG VIAL IVPUSH SCH (09:21)
[2022-06-12] MEDS ORDERED: LOSARTAN POTASSIUM 50 MG TABLET PO ONE (09:59)
[2022-06-12 10:04] LABS: HEMATOCRIT 36.7 % (32.4-45.2); HEMOGLOBIN 12.6 GM/dL (10.7-15.3); MCHC 34.2 g/dl (32.0-36.0); MEAN CELL VOLUME 78.7 fl (80-96); MEAN PLT VOLUME 9.4 fl (7.5-11.1); PLATELET COUNT 290 10^3/uL (134-434); RBC 4.66 M/mm3 (3.60-5.2); RDW 13.6 % (11.6-15.6); WHITE BLOOD COUNT 12.1 K/mm3 (4.0-10.0)
[2022-06-12] MEDS: ACETAMINOPHEN 1000 MG/100 ML BAG IVPB PRN (10:56)
[2022-06-12] MEDS ORDERED: BUPIVACAINE HCL/PF 0.25% (2.5MG/ML) 10 ML VIAL ONE (12:58)
[2022-06-12 13:12] LABS: CHLORIDE 99 mmol/L (98-107); SODIUM 138 mmol/L (136-145)
[2022-06-12 13:13] LABS: CALCIUM 9.1 mg/dL (8.5-10.1)
[2022-06-12 13:15] LABS: ALBUMIN 3.2 g/dl (3.4-5.0); BLOOD UREA NITROGEN 11.6 mg/dL (7-18); CO2 29 mmol/L (21-32); GLUCOSE,RANDOM 105 mg/dL (74-106); LIPASE 99 U/L (73-393)
[2022-06-12 13:17] LABS: CREATININE 0.9 mg/dL (0.55-1.3); SGOT/AST 68 U/L (15-37); SGPT/ALT 88 U/L (13-61)
[2022-06-12 13:19] LABS: BILIRUBIN,TOTAL 0.8 mg/dL (0.2-1); TOT PROT 6.8 g/dl (6.4-8.2)
[2022-06-12 13:20] LABS: ALK PHOS 99 U/L (45-117)
[2022-06-12] MEDS ORDERED: MIDAZOLAM HCL 2 MG/2 ML SINGLE DOSE VIAL ONE (13:20)
[2022-06-12] MEDS ORDERED: ROCURONIUM BROMIDE 50 MG/5 ML SYRINGE ONE ×2 (13:20→14:03)
[2022-06-12] MEDS ORDERED: PROPOFOL 20 ML ONE ×2 (13:20→13:51)
[2022-06-12] MEDS ORDERED: BUPIVACAINE HCL/PF 0.25% (2.5MG/ML) 10 ML VIAL IJ ONE (14:04)
[2022-06-12] MEDS ORDERED: HEPARIN NA (PORCINE) 5,000 UNITS/ML 1ML VIAL ONE (14:06)
[2022-06-12 14:13] LABS: ANION GAP 10 MMOL/L (8-16)
[2022-06-12] MEDS ORDERED: SUGAMMADEX SODIUM 200 MG/2 ML VIAL ONE (14:39)
[2022-06-12] MEDS ORDERED: ONDANSETRON 4 MG/2 ML VIAL IVPUSH PRN ×2 (15:17→15:45)
[2022-06-12] MEDS: KCL 10 MEQ IVPB 10 MEQ/100 ML INFUS.BAG IVPB SCH ×4 (15:34→20:07)
[2022-06-12] MEDS ORDERED: oxyCODONE HCL 5 MG TABLET PO PRN (15:45)
[2022-06-12] MEDS ORDERED: morphine SULFATE 4 MG/ML VIAL IVPUSH PRN (15:45)
[2022-06-12] MEDS ORDERED: POTASSIUM CHLORIDE 10 MEQ PREMIX IVPB (POTASSIUM RIDER) IVPB ONE (16:50)
[2022-06-12] MEDS: POTASSIUM CHLORIDE 10 MEQ in SODIUM CHLORIDE 0.45% 1,000 ML IVPB SCH (18:07)
[2022-06-12] MEDS ORDERED: PIPERACILLIN/TAZOB 3.375 GM 3.375 GM in DEXTROSE 5%-WATER - 50 ML IVPB ONE (20:20)
[2022-06-13 09:54] LABS: BASO % 0.2 % (0-2.0); EOS % 0.4 % (0-4.5); HEMATOCRIT 31.8 % (32.4-45.2); HEMOGLOBIN 10.7 GM/dL (10.7-15.3); LYMPH % 14.5 % (8-40); MCH 26.8 pg (25.7-33.7); MCHC 33.8 g/dl (32.0-36.0); MEAN CELL VOLUME 79.2 fl (80-96); MEAN PLT VOLUME 8.8 fl (7.5-11.1); MONO % 7.4 % (3.8-10.2); NEUT % 77.5 % (42.8-82.8); PLATELET COUNT 259 10^3/uL (134-434); RBC 4.02 M/mm3 (3.60-5.2); RDW 13.9 % (11.6-15.6); WHITE BLOOD COUNT 12.2 K/mm3 (4.0-10.0)
[2022-06-13] MEDS: ACETAMINOPHEN 500 MG TABLET (FP) PO PRN ×3 (09:57→23:29)
[2022-06-13] MEDS: PANTOPRAZOLE SODIUM 40 MG VIAL IVPUSH SCH (09:58)
[2022-06-13] MEDS: LOSARTAN POTASSIUM 50 MG TABLET PO SCH (09:58)
[2022-06-13] MEDS ORDERED: LOSARTAN POTASSIUM 50 MG TABLET PO SCH (10:00)
[2022-06-13] MEDS ORDERED: NEBIVOLOL 5 MG TABLET (FP) PO SCH (10:00)
[2022-06-13] MEDS: NEBIVOLOL 5 MG TABLET (FP) PO SCH (10:00)
[2022-06-13 10:23] LABS: CALCIUM 8.4 mg/dL (8.5-10.1)
[2022-06-13 10:24] LABS: ALBUMIN 2.7 g/dl (3.4-5.0); BLOOD UREA NITROGEN 16.5 mg/dL (7-18); MAGNESIUM 2.2 mg/dL (1.8-2.4)
[2022-06-13 10:26] LABS: CREATININE 0.9 mg/dL (0.55-1.3)
[2022-06-13 10:28] LABS: BILIRUBIN,TOTAL 0.7 mg/dL (0.2-1)
[2022-06-13] MEDS ORDERED: DOCUSATE SODIUM 100 MG CAPSULE (FP) PO ONE (12:12)
[2022-06-13] MEDS ORDERED: POLYETHYLENE GLYCOL (HEALTHYLAX) 3350 17 GM PACKET PO ONE (12:15)
[2022-06-13 14:11] VITALS: RESP 18
[2022-06-13] MEDS: POTASSIUM CHLORIDE 10 MEQ in SODIUM CHLORIDE 0.45% 1,000 ML IVPB SCH (17:56)
[2022-06-13] MEDS ORDERED: ACETAMINOPHEN 325 MG TABLET (FP) PO PRN (18:00)
[2022-06-13] MEDS ORDERED: ACETAMINOPHEN 325 MG TABLET (FP) PO ONE (18:00)
[2022-06-14] MEDS: ACETAMINOPHEN 500 MG TABLET (FP) PO PRN (10:07)
[2022-06-14] MEDS: NEBIVOLOL 5 MG TABLET (FP) PO SCH (10:08)
[2022-06-14] MEDS: LOSARTAN POTASSIUM 50 MG TABLET PO SCH (10:08)
[2022-06-14] MEDS: PANTOPRAZOLE SODIUM 40 MG VIAL IVPUSH SCH (12:21)
[2022-06-14 16:55] VITALS: BP 159/89; PULSE 81; TEMP 98.2
== END 2022-06-14 15:04 | disposition home or self-care (01) | DRG 419 ==
LOC: JER 09:39 → JERBED 12:52 → J8W 18:34
PROVIDERS: ADMIT Family Medicine; ATTEND Family Medicine
PROC: 0FT44ZZ Resection of Gallbladder, Percutaneous Endoscopic Approach (ICD-10-PCS; principal; 2022-06-12 14:00)
DX: K80.00 Calculus of gallbladder with acute cholecystitis without obstruction (principal); I10 Essential (primary) hypertension; K21.9 Gastro-esophageal reflux disease without esophagitis; E78.5 Hyperlipidemia, unspecified; E11.9 Type 2 diabetes mellitus without complications; I25.10 Atherosclerotic heart disease of native coronary artery without angina pectoris; E87.6 Hypokalemia
CPT/HCPCS: 0241U-QW; 36415; 71045-TC-FY; 76705-TC; 80053; 81003; 83690; 83735; 84484; 85025; 85027; 85610; 86850; 86900; 86901; 87040; 88304-TC; 93005; 93010; 94010; 94760; 97116-GP; 97161-GP; 99285-25; J1644

== ENCOUNTER 2023-11-02 17:14 | Inpatient (IN) | payer MEDICARE, OTHER ==
[2023-11-02] MEDS: ACYCLOVIR INJECTION 650 MG in DEXTROSE 5%-WATER - 100 ML IVPUSH ONE (17:37)
[2023-11-02] MEDS ORDERED: ACETAMINOPHEN INJECTION 100 ML ONE (17:42)
[2023-11-02] MEDS: SODIUM CHLORIDE 0.9% 500 ML INFUS.BAG IV ONE (18:00)
[2023-11-02] MEDS: ACETAMINOPHEN 1000 MG/100 ML BAG IVPB ONE (18:00)
[2023-11-02] MEDS: ACYCLOVIR 500 MG (50MG/ML) VIAL IVPUSH ONE (18:10)
[2023-11-02 18:18] LABS: BASO % 0.9 % (0-2.0); EOS % 1.2 % (0-4.5); HEMATOCRIT 40.4 % (32.4-45.2); HEMOGLOBIN 13.7 GM/dL (10.7-15.3); LYMPH % 26.5 % (8-40); MCH 26.8 pg (25.7-33.7); MCHC 33.8 g/dl (32.0-36.0); MEAN CELL VOLUME 79.3 fl (80-96); MEAN PLT VOLUME 8.4 fl (7.5-11.1); NEUT % 60.4 % (42.8-82.8); PLATELET COUNT 282 10^3/uL (134-434); RDW 13.3 % (11.6-15.6)
[2023-11-02 18:21] LABS: POTASSIUM 3.8 mmol/L (3.5-5.1)
[2023-11-02 18:23] LABS: CALCIUM 10.1 mg/dL (8.5-10.1)
[2023-11-02 18:24] LABS: ALBUMIN 4.1 g/dl (3.4-5.0); BLOOD UREA NITROGEN 19.6 mg/dL (7-18)
[2023-11-02 18:27] LABS: CREATININE 1.2 mg/dL (0.55-1.3)
[2023-11-02 18:28] LABS: BILIRUBIN,TOTAL 0.4 mg/dL (0.2-1)
[2023-11-02 18:29] LABS: TOT PROT 7.7 g/dl (6.4-8.2)
[2023-11-02] MEDS ORDERED: VANCOMYCIN/WATER 1250 MG 1,250 MG/250 ML BAG IVPB SCH (18:45)
[2023-11-02] MEDS: ACYCLOVIR INJECTION 650 MG in DEXTROSE 5%-WATER - 100 ML IVPB ONE (19:32)
[2023-11-02] MEDS ORDERED: VANCOMYCIN/WATER 1250 MG 1,250 MG/250 ML BAG IVPB ONE (19:52)
[2023-11-02] MEDS: HEPARIN NA (PORCINE) 5,000 UNITS/ML 1ML VIAL SQ SCH (21:58)
[2023-11-02] MEDS: CHLORHEXIDINE GLUCONATE 4% CLEANSER FOR DECOLONIZATION TP SCH (21:58)
[2023-11-02] MEDS: ACETAMINOPHEN 1000 MG/100 ML BAG IVPB PRN (22:04)
[2023-11-03] MEDS: GABAPENTIN 100 MG CAPSULE PO ONE (03:45)
[2023-11-03 07:37] LABS: CHLORIDE 102 mmol/L (98-107); POTASSIUM 2.9 mmol/L (3.5-5.1); SODIUM 136 mmol/L (136-145)
[2023-11-03 07:39] LABS: ALBUMIN 3.8 g/dl (3.4-5.0)
[2023-11-03 07:40] LABS: ANION GAP 9 mmol/L (4-13); CO2 25 mmol/L (21-32); GLUCOSE,RANDOM 147 mg/dL (74-106)
[2023-11-03 07:43] LABS: CALCIUM 8.9 mg/dL (8.5-10.1); SGOT/AST 21 U/L (15-37); SGPT/ALT 22 U/L (13-61)
[2023-11-03 07:44] LABS: BILIRUBIN,TOTAL 0.3 mg/dL (0.2-1); MAGNESIUM 1.5 mg/dL (1.8-2.4)
[2023-11-03 07:45] LABS: ALK PHOS 69 U/L (45-117); TOT PROT 7.2 g/dl (6.4-8.2)
[2023-11-03 07:47] LABS: BASO % 0.7 % (0-2.0); EOS % 0.7 % (0-4.5); HEMATOCRIT 38.6 % (32.4-45.2); HEMOGLOBIN 13.3 GM/dL (10.7-15.3); LYMPH % 22.7 % (8-40); MCH 26.8 pg (25.7-33.7); MCHC 34.3 g/dl (32.0-36.0); MEAN PLT VOLUME 8.4 fl (7.5-11.1); NEUT % 66.9 % (42.8-82.8); PLATELET COUNT 274 10^3/uL (134-434); RBC 4.95 M/mm3 (3.60-5.2); RDW 13.3 % (11.6-15.6); WHITE BLOOD COUNT 5.9 K/mm3 (4.0-10.0)
[2023-11-03] MEDS: DOCUSATE SODIUM 100 MG CAPSULE (FP) PO PRN (08:00)
[2023-11-03] MEDS: ACYCLOVIR INJECTION 650 MG in DEXTROSE 5%-WATER - 100 ML IVPB SCH (09:25)
[2023-11-03] MEDS: PANTOPRAZOLE 40 MG TABLET PO SCH (09:25)
[2023-11-03] MEDS: POTASSIUM CHLORIDE ORAL LIQUID 20 MEQ/15 ML PO SCH (09:36)
[2023-11-03] MEDS: LOSARTAN POTASSIUM 50 MG TABLET PO SCH (09:36)
[2023-11-03] MEDS: MUPIROCIN 2% TOPICAL OINTMENT FOR DECOLONIZATION NS SCH (09:37)
[2023-11-03] MEDS ORDERED: NEBIVOLOL 2.5 MG TABLET (FP) PO SCH (10:00)
[2023-11-03] MEDS ORDERED: LOSARTAN 50MG/HCTZ 12.5MG 1 TAB PO SCH (10:00)
[2023-11-03] MEDS: KCL 10 MEQ IVPB 10 MEQ/100 ML INFUS.BAG IVPB SCH (10:00)
[2023-11-03] MEDS: MAGNESIUM 1GM/D5W 100ML - 100 ML IVPB IVPB ONE ×2 (10:39→14:52)
[2023-11-03] MEDS: oxyCODONE HCL 5 MG TABLET PO ONE (10:43)
[2023-11-03] MEDS: VANCOMYCIN/WATER 1250 MG 1,250 MG/250 ML BAG IVPB SCH (10:44)
[2023-11-03] MEDS: LACTATED RINGERS SOLUTION 1,000 ML/1,000 ML INFUS.BAG IV SCH (12:00)
[2023-11-03] MEDS: LACTATED RINGERS SOLUTION 1000 ML INFUS.BAG IV ONE ×2 (13:15→16:39)
[2023-11-03 14:43] LABS: POTASSIUM 3.5 mmol/L (3.5-5.1)
[2023-11-03 14:46] LABS: ALBUMIN 3.4 g/dl (3.4-5.0); BLOOD UREA NITROGEN 14.6 mg/dL (7-18)
[2023-11-03 14:49] LABS: CREATININE 0.9 mg/dL (0.55-1.3); PHOSPHOROUS 2.3 mg/dL (2.5-4.9)
[2023-11-03 14:51] LABS: BILIRUBIN,TOTAL 0.4 mg/dL (0.2-1); TOT PROT 6.8 g/dl (6.4-8.2)
[2023-11-03] MEDS: NEBIVOLOL 2.5 MG TABLET (FP) PO SCH (21:05)
[2023-11-03] MEDS ORDERED: VANCOMYCIN/WATER 1250 MG 1,250 MG/250 ML BAG IVPB SCH ×2 (22:00)
[2023-11-04 07:32] LABS: POTASSIUM 3.9 mmol/L (3.5-5.1)
[2023-11-04 07:38] LABS: ALBUMIN 3.4 g/dl (3.4-5.0); BASO % 0.7 % (0-2.0); BLOOD UREA NITROGEN 11.7 mg/dL (7-18); EOS % 0.7 % (0-4.5); HEMATOCRIT 36.9 % (32.4-45.2); HEMOGLOBIN 12.6 GM/dL (10.7-15.3); LYMPH % 26.9 % (8-40); MAGNESIUM 2.1 mg/dL (1.8-2.4); MCH 26.9 pg (25.7-33.7); MCHC 34.2 g/dl (32.0-36.0); MEAN CELL VOLUME 78.7 fl (80-96); MEAN PLT VOLUME 8.6 fl (7.5-11.1); MONO % 10.6 % (3.8-10.2); NEUT % 61.1 % (42.8-82.8); PLATELET COUNT 243 10^3/uL (134-434); RBC 4.69 M/mm3 (3.60-5.2); WHITE BLOOD COUNT 6.7 K/mm3 (4.0-10.0)
[2023-11-04 07:41] LABS: CREATININE 0.8 mg/dL (0.55-1.3); PHOSPHOROUS 2.6 mg/dL (2.5-4.9)
[2023-11-04 07:42] LABS: BILIRUBIN,TOTAL 0.6 mg/dL (0.2-1)
[2023-11-04 07:43] LABS: TOT PROT 6.6 g/dl (6.4-8.2)
[2023-11-04] MEDS: PREGABALIN 25 MG CAPSULE PO SCH (09:41)
[2023-11-04] MEDS: POLYMYXIN B SULFATE/TMP 10 ML OPHTHALMIC SOLUTION OS SCH (09:46)
[2023-11-04] MEDS: BACITRACIN 3.5 GM OPTHALMIC OINT TUBE OD SCH (14:00)
[2023-11-05 07:07] LABS: POTASSIUM 4.1 mmol/L (3.5-5.1)
[2023-11-05 07:09] LABS: CALCIUM 9.7 mg/dL (8.5-10.1)
[2023-11-05 07:13] LABS: CREATININE 0.9 mg/dL (0.55-1.3); PHOSPHOROUS 2.8 mg/dL (2.5-4.9)
[2023-11-05] MEDS: CALAMINE 8% TOPICAL LOTION 177 ML BOTTLE TP PRN (07:54)
[2023-11-05] MEDS: PREGABALIN 50 MG CAPSULE PO SCH (14:47)
[2023-11-05] MEDS: PNEUMOC 20-VAL CONJ-DIP CRM/PF 0.5 ML SYRINGE IM ONE (21:57)
[2023-11-06 08:06] LABS: HEMATOCRIT 36.5 % (32.4-45.2); HEMOGLOBIN 12.2 GM/dL (10.7-15.3); MCH 26.7 pg (25.7-33.7); MCHC 33.5 g/dl (32.0-36.0); MEAN CELL VOLUME 79.6 fl (80-96); MEAN PLT VOLUME 8.3 fl (7.5-11.1); PLATELET COUNT 306 10^3/uL (134-434); RBC 4.59 M/mm3 (3.60-5.2); RDW 13.4 % (11.6-15.6); WHITE BLOOD COUNT 8.8 K/mm3 (4.0-10.0)
[2023-11-06 08:12] LABS: POTASSIUM 3.9 mmol/L (3.5-5.1)
[2023-11-06 08:21] LABS: ALBUMIN 3.3 g/dl (3.4-5.0); CALCIUM 9.3 mg/dL (8.5-10.1)
[2023-11-06 08:22] LABS: BLOOD UREA NITROGEN 10.8 mg/dL (7-18)
[2023-11-06 08:25] LABS: CREATININE 0.9 mg/dL (0.55-1.3); PHOSPHOROUS 3.5 mg/dL (2.5-4.9)
[2023-11-06 08:26] LABS: BILIRUBIN,TOTAL 0.3 mg/dL (0.2-1); TOT PROT 6.7 g/dl (6.4-8.2)
[2023-11-06] MEDS: LIDOCAINE 5% TOPICAL PATCH TP SCH (18:04)
[2023-11-06] MEDS: PREGABALIN 50 MG CAPSULE PO SCH (21:14)
[2023-11-06] MEDS: LIDOCAINE PATCH REMOVAL MC SCH (21:34)
[2023-11-07 08:14] LABS: POTASSIUM 3.9 mmol/L (3.5-5.1)
[2023-11-07 08:20] LABS: CALCIUM 9.3 mg/dL (8.5-10.1)
[2023-11-07 08:22] LABS: CREATININE 0.9 mg/dL (0.55-1.3)
[2023-11-07 15:54] VITALS: BMI 28.1
[2023-11-07] MEDS: hydrALAZINE HCL 20 MG/ML VIAL IVPUSH ONE (17:43)
[2023-11-07] MEDS: PREGABALIN 50 MG CAPSULE PO SCH (21:36)
[2023-11-08 08:26] LABS: BASO % 0.9 % (0-2.0); EOS % 1.4 % (0-4.5); HEMATOCRIT 36.6 % (32.4-45.2); HEMOGLOBIN 12.5 GM/dL (10.7-15.3); LYMPH % 42.4 % (8-40); MCH 27.2 pg (25.7-33.7); MCHC 34.1 g/dl (32.0-36.0); MEAN CELL VOLUME 79.9 fl (80-96); MEAN PLT VOLUME 8.2 fl (7.5-11.1); NEUT % 48.3 % (42.8-82.8); PLATELET COUNT 361 10^3/uL (134-434); RBC 4.58 M/mm3 (3.60-5.2); RDW 13.6 % (11.6-15.6); WHITE BLOOD COUNT 9.5 K/mm3 (4.0-10.0)
[2023-11-08 08:53] LABS: POTASSIUM 4.7 mmol/L (3.5-5.1)
[2023-11-08 08:58] LABS: ALBUMIN 3.4 g/dl (3.4-5.0)
[2023-11-08 09:00] LABS: BLOOD UREA NITROGEN 15.2 mg/dL (7-18); CALCIUM 9.8 mg/dL (8.5-10.1)
[2023-11-08 09:03] LABS: BILIRUBIN,TOTAL 0.5 mg/dL (0.2-1); CREATININE 0.9 mg/dL (0.55-1.3); TOT PROT 7.2 g/dl (6.4-8.2)
[2023-11-08 09:04] LABS: PHOSPHOROUS 4.1 mg/dL (2.5-4.9)
[2023-11-09] MEDS: ACETAMINOPHEN 500 MG TABLET (FP) PO PRN (00:10)
[2023-11-09 05:51] VITALS: TEMP 97.7
[2023-11-09 08:25] LABS: EOS % 3.3 % (0-4.5); HEMATOCRIT 37.6 % (32.4-45.2); HEMOGLOBIN 12.4 GM/dL (10.7-15.3); MCH 26.6 pg (25.7-33.7); MCHC 33.1 g/dl (32.0-36.0); MEAN CELL VOLUME 80.3 fl (80-96); MEAN PLT VOLUME 7.8 fl (7.5-11.1); NEUT % 48.7 % (42.8-82.8); PLATELET COUNT 424 10^3/uL (134-434); RBC 4.69 M/mm3 (3.60-5.2); RDW 13.7 % (11.6-15.6); WHITE BLOOD COUNT 8.1 K/mm3 (4.0-10.0)
[2023-11-09 08:46] LABS: POTASSIUM 4.7 mmol/L (3.5-5.1)
[2023-11-09 08:49] LABS: CALCIUM 9.9 mg/dL (8.5-10.1)
[2023-11-09 08:50] LABS: ALBUMIN 3.5 g/dl (3.4-5.0); BLOOD UREA NITROGEN 15.4 mg/dL (7-18)
[2023-11-09 08:53] LABS: PHOSPHOROUS 3.8 mg/dL (2.5-4.9)
[2023-11-09 08:54] LABS: BILIRUBIN,TOTAL 0.5 mg/dL (0.2-1); TOT PROT 7.3 g/dl (6.4-8.2)
[2023-11-09] MEDS: amLODIPine BESYLATE 5 MG TABLET (FP) PO SCH (11:26)
[2023-11-09 12:16] VITALS: BP 160/76; PULSE 66; RESP 16
[2023-11-09] MEDS: HYDROCHLOROTHIAZIDE 25 MG TABLET (FP) PO SCH (14:32)
[2023-11-10] MEDS ORDERED: VALSARTAN 160 MG TABLET PO SCH (10:00)
== END 2023-11-09 15:00 | disposition home health service (06) | DRG 74 ==
LOC: JER 17:14 → JERBED 17:29 → JICU 20:36
PROVIDERS: ADMIT Internal Medicine Pulmonary Disease; ATTEND Family Medicine
DX: B02.29 Other postherpetic nervous system involvement (principal); B02.30 Zoster ocular disease, unspecified; I10 Essential (primary) hypertension; E78.5 Hyperlipidemia, unspecified; E11.9 Type 2 diabetes mellitus without complications; K21.9 Gastro-esophageal reflux disease without esophagitis; I25.10 Atherosclerotic heart disease of native coronary artery without angina pectoris; E87.6 Hypokalemia
CPT/HCPCS: 36415; 70480-TC; 80048; 80053; 82962; 83036; 83735; 84100; 84439; 84443; 84481; 85025; 85027; 87040; 90677; 93005; 93010; 97116-GP; 97162-GP; 99285-25; G0009; J0131; J1644